=== PATIENT | female | born 1960 | race Caucasian/White ===

== ENCOUNTER 2016-12-12 16:57 | Emergency (ER) | payer OTHER ==
[2016-12-12 17:07] VITALS: BP 152/85; PULSE 76; TEMP 98; BMI 35.9
--- NOTE | 2016-12-12 17:20 | PDOC ---
History of Present Illness - General History Source: Patient Exam Limitations: No Limitations - History of Present Illness Initial Comments: 12/12/16 17:58 The patient is a 56 year old female, with a significant past medical history of HTN and depression, who presents to the emergency department with chest pain, neck pain, abdominal pain and urinary frequency since yesterday. She states that her chest pain is mild, without mild radiation to her left arm, without any modifying factors. She notes that she currently does not have chest pain. She describes her neck pain, as ranging from mild to moderate, with radiation down her throat. She denies any modifying factors. She describes her abdominal pain as a cramping, burning sensation that is mild in nature, without radiation or modifying factors. She states that she has a gastric reflux in the past. The patient denies shortness of breath, headache and dizziness. Denies fever, chills, nausea, vomit, diarrhea and constipation. Denies dysuria, urgency and hematuria. Allergies: None Past surgical history: Tubal ligation Social history: No alcohol, tobacco or drug use reported <Devonte Hurtado - Last Filed: 12/12/16 18:34> <Jewell Pacheco - Last Filed: 12/12/16 22:23> - General Chief Complaint: Chest Pain Stated Complaint: HEAD/NECK PROBLEM Time Seen by Provider: 12/12/16 17:19 Past History <Devonte Hurtado - Last Filed: 12/12/16 18:34> - Past Medical History HTN: Yes Psychiatric Problems: Yes (depression) - Psycho/Social/Smoking Cessation Hx Anxiety: No Suicidal Ideation: No Smoking History: Never smoked Have you smoked in the past 12 months: No Information on smoking cessation initiated: No Hx Alcohol Use: No Drug/Substance Use Hx: No Substance Use Type: None <Jewell Pacheco - Last Filed: 12/12/16 22:23> - Past Medical History Allergies/Adverse Reactions: Allergies Allergy/AdvReac Type Severity Reaction Status Date / Time No Known Allergies Allergy Verified 12/12/16 17:02 Home Medications: Ambulatory Orders Enalapril Maleate [Vasotec -] 20 mg PO DAILY 05/15/14 Hydrochlorothiazide [Hctz -] 25 mg PO DAILY 05/15/14 Paroxetine HCl [Paxil] 30 mg PO DAILY #7 tablet 02/15/16 Famotidine [Pepcid -] 20 mg PO DAILY #7 tablet 12/12/16 Ibuprofen [Motrin -] 600 mg PO TID PRN #21 tablet 12/12/16 Mag Hydrox/Al Hydrox/Simeth [Mylanta Suspension -] 30 ml PO Q6H PRN #1 bottle Review of Systems - Review of Systems Able to Perform ROS?: Yes Comments:: 12/12/16 17:58 GENERAL/CONSTITUTIONAL: No fever or chills. No weakness. HEAD, EYES, EARS, NOSE AND THROAT: No change in vision. No ear pain or discharge. No sore throat. CARDIOVASCULAR: +Chest pain. No shortness of breath RESPIRATORY: No cough, wheezing, or hemoptysis. GASTROINTESTINAL: +Abdominal pain. No nausea, vomiting, diarrhea or constipation. GENITOURINARY: +Frequency. No dysuria MUSCULOSKELETAL: +Neck pain. No joint or muscle swelling or pain. No back pain. SKIN: No rash NEUROLOGIC: No headache, vertigo, loss of consciousness, or change in strength/ sensation. ENDOCRINE: No increased thirst. No abnormal weight change HEMATOLOGIC/LYMPHATIC: No anemia, easy bleeding, or history of blood clots. ALLERGIC/IMMUNOLOGIC: No hives or skin allergy. <Devonte Hurtado - Last Filed: 12/12/16 18:34> *Physical Exam - Vital Signs Last Vital Signs Temp Pulse Resp BP Pulse Ox 98.0 F 76 18 152/85 100 12/12/16 17:04 12/12/16 17:04 12/12/16 17:04 12/12/16 17:04 12/12/16 17:04 - Physical Exam Comments: 12/12/16 17:58 GENERAL: Awake, alert, and fully oriented, in no acute distress HEAD: No signs of trauma, normocephalic, atraumatic EYES: PERRLA, EOMI, sclera anicteric, conjunctiva clear ENT: Auricles normal inspection, hearing grossly normal, nares patent, oropharynx clear without exudates. Moist mucosa NECK: Normal ROM, supple, no lymphadenopathy, JVD, or masses LUNGS: No distress, speaks full sentences, clear to auscultation bilaterally HEART: Regular rate and rhythm, normal S1 and S2, no murmurs, rubs or gallops, peripheral pulses normal and equal bilaterally. ABDOMEN: Soft, nontender, normoactive bowel sounds. No guarding, no rebound. No masses EXTREMITIES: Normal inspection, Normal range of motion, no edema. No clubbing or cyanosis. NEUROLOGICAL: Cranial nerves II through XII grossly intact. Normal speech, normal gait, no focal sensorimotor deficits SKIN: Warm, Dry, normal turgor, no rashes or lesions noted. <Devonte Hurtado - Last Filed: 12/12/16 18:34> - Vital Signs Last Vital Signs Temp Pulse Resp BP Pulse Ox 98.0 F 76 18 152/85 100 12/12/16 17:04 12/12/16 17:04 12/12/16 17:04 12/12/16 17:04 12/12/16 17:04 <Jewell Pacheco - Last Filed: 12/12/16 22:23> Heart Score/ECG Review #1 ECG reviewed & interpreted by me at: 17:59 12/12/16 17:11 Ventricular rate: 71 bpm Normal sinus rhythm Inverted T waves in lead I and lead II <Devonte Hurtado - Last Filed: 12/12/16 18:34> ED Treatment Course - LABORATORY CBC & Chemistry Diagram: 12/12/16 17:37 12/12/16 17:37 - ADDITIONAL ORDERS Additional order review: 12/12/16 17:37 RBC 4.60 MCV 83.6 MCHC 32.9 RDW 14.3 MPV 8.2 Neutrophils % 61.9 Lymphocytes % 28.6 D Monocytes % 6.2 Eosinophils % 2.3 Basophils % 1.0 - RADIOLOGY Radiograph Interpretation: 12/12/16 18:34 Chest X-Ray Reviewed by: Dr. Villa Astudillo Impression: No acute pathology. <Devonte Hurtado - Last Filed: 12/12/16 18:34> - LABORATORY CBC & Chemistry Diagram: 12/12/16 17:37 12/12/16 17:37 <Jewell Pacheco - Last Filed: 12/12/16 22:23> Medical Decision Making - Medical Decision Making 12/12/16 18:05 56 yo female p/w multiple complaints-she had cp yesterday that started in her neck .It has resolved but then she had epigastric discomfort that she described as burning, she doesnothave any back pain -no fever,no chills, no vomiting ,no tingling or numbness in extemities, no shortness of breath,no cough -labs unremarkable, ua negative,neg trop -symptoms resolved after IV toradol pt discharged home 12/12/16 22:20 <Jewell Pacheco - Last Filed: 12/12/16 22:23> *DC/Admit/Observation/Transfer - Attestations Scribe Attestion: 12/12/16 17:58 Documentation prepared by Devonte Hurtado, acting as medical equipment technician for Jewell Pacheco MD. <Devonte Hurtado - Last Filed: 12/12/16 18:34> <Jewell Pacheco - Last Filed: 12/12/16 22:23> Diagnosis at time of Disposition: Epigastric pain, Tension headache Neck strain Qualifiers: Encounter type: initial encounter Qualified Code(s): S16.1XXA - Strain of muscle, fascia and tendon at neck level, initial encounter Anxiety disorder Qualifiers: Anxiety disorder type: unspecified anxiety disorder Qualified Code(s): F41.9 - Anxiety disorder, unspecified - Discharge Dispostion Disposition: HOME Condition at time of disposition: Stable - Prescriptions Prescriptions: Mag Hydrox/Al Hydrox/Simeth [Mylanta Suspension -] 30 ml PO Q6H PRN #1 bottle PRN Reason: Dyspnea Ibuprofen [Motrin -] 600 mg PO TID PRN #21 tablet PRN Reason: Pain Famotidine [Pepcid -] 20 mg PO DAILY #7 tablet - Referrals Referrals: Jerri Miramontes [Primary Care Provider] - - Patient Instructions Printed Discharge Instructions: DI for Atypical Chest Pain, DI for Neck Pain, DI for Hormonal and Tension Headaches Additional Instructions: please worm picker your medications at your pharmacy please see your regular physician -if you have recurrent headaches you may need to see a specialist
[2016-12-12] MEDS ORDERED: ASPIRIN 81 MG CHEWABLE TABLETS PO ONE (17:35)
[2016-12-12] MEDS ORDERED: MAG HYDROX/AL HYDROX/SIMETH 30 ML UNIT-DOSE CUP PO ONE (17:36)
[2016-12-12 17:54] LABS: EOSINOPHIL 2.3 % (0-4.5); MCH 27.5 pg (25.7-33.7); MCHC 32.9 g/dl (32.0-36.0); MEAN CELL VOLUME 83.6 fl (80-96); MEAN PLT VOLUME 8.2 fl (7.5-11.1); NEUTROPHILS 61.9 % (42.8-82.8); PLATELET COUNT 314 K/MM3 (134-434); RDW 14.3 % (11.6-15.6); WHITE BLOOD COUNT 6.8 K/mm3 (4.0-10.0)
[2016-12-12 17:55] LABS: URINE APPEARANCE CLEAR; URINE BILIRUBIN NEGATIVE (NEGATIVE); URINE BLOOD NEGATIVE (NEGATIVE); URINE COLOR COLORLESS; URINE GLUCOSE (UA) NEGATIVE (NEGATIVE); URINE KETONE NEGATIVE (NEGATIVE); URINE LEUK ESTERASE NEGATIVE (NEGATIVE); URINE NITRITE NEGATIVE (NEGATIVE); URINE PROTEIN NEGATIVE (NEGATIVE); URINE UROBILINOGEN NEGATIVE E.U./dl (0.2-1.0)
[2016-12-12 18:07] LABS: INR 1.04 (0.82-1.09); PROTHROMBIN TIME (PATIENT) 11.5 SEC (9.98-11.88)
[2016-12-12 18:18] LABS: ALBUMIN 3.9 g/dl (3.4-5.0); ANION GAP 10 (8-16); BILIRUBIN,TOTAL 0.3 mg/dL (0.2-1.0); CALCIUM 9.1 mg/dL (8.5-10.1); CO2 28 mmol/L (21-32); CREATININE 0.8 mg/dL (0.55-1.02); GLUCOSE,RANDOM 105 mg/dL (74-106); MAGNESIUM 1.9 mg/dL (1.8-2.4); SGOT/AST 16 U/L (15-37); SGPT/ALT 23 U/L (12-78); TOT PROT 7.2 g/dl (6.4-8.2)
[2016-12-12 18:21] LABS: ALK PHOS 93 U/L (45-117); TROPONIN I < 0.02 ng/ml (0.00-0.05)
[2016-12-12] MEDS ORDERED: MAG HYDROX/AL HYDROX/SIMETH 30 ML UNIT-DOSE CUP ONE (18:41)
[2016-12-12] MEDS ORDERED: ASPIRIN 81 MG CHEWABLE TABLETS ONE (18:41)
[2016-12-12] MEDS ORDERED: DEXAMETHASONE SOD PHOSPHATE 10 MG/1 ML VIAL IVPUSH ONE (18:44)
[2016-12-12] MEDS ORDERED: KETOROLAC TROMETHAMINE 30 MG/1 ML VIAL IVPUSH ONE (18:45)
[2016-12-12] MEDS ORDERED: KETOROLAC TROMETHAMINE 30 MG/1 ML VIAL ONE (18:50)
[2016-12-12] MEDS ORDERED: DEXAMETHASONE SOD PHOSPHATE 10 MG/1 ML VIAL ONE (18:50)
[2016-12-12] MEDS ORDERED: METOCLOPRAMIDE HCL INJECTION 10 MG/2 ML VIAL IVPB ONE (20:15)
[2016-12-12] MEDS ORDERED: METOCLOPRAMIDE HCL INJECTION 10 MG/2 ML VIAL ONE (20:20)
== END 2016-12-12 21:20 | disposition home or self-care (01) ==
LOC: JER 16:57
PROC: 3E033GC Introduction of Other Therapeutic Substance into Peripheral Vein, Percutaneous Approach (ICD-10-PCS; principal; 2016-12-12)
PROC: 3E0333Z Introduction of Anti-inflammatory into Peripheral Vein, Percutaneous Approach (ICD-10-PCS; 2016-12-12)
DX: G44.209 Tension-type headache, unspecified, not intractable (principal)
CPT/HCPCS: 36415; 71020-TC; 80053; 81003; 82550; 83690; 83735; 84484; 85025; 85610; 85651; 96374; 96375; 99285-25

== ENCOUNTER 2018-05-14 09:12 | Inpatient (IN) | payer OTHER ==
[2018-05-14] MEDS ORDERED: VANCOMYCIN 1,000 MG in DEXTROSE 5%-WATER - 250 ML IVPB ONE (09:43)
[2018-05-14] MEDS ORDERED: KETOROLAC TROMETHAMINE 30 MG/1 ML VIAL IVPB ONE (09:43)
--- NOTE | 2018-05-14 09:50 | PDOC ---
History of Present Illness - General History Source: Patient Exam Limitations: No Limitations - History of Present Illness Initial Comments: 05/14/18 09:47 58 yr female with 2 days facial pain, runny nose, sore throat, headache. Pt states worse today with redness to nose, swelling to under both eyes. Pt denies fever or chills. Pt works as a home health aide. denies foreign travel, no sick contacts at home. <Shena Cabral - Last Filed: 05/14/18 13:56> <Priscila Us - Last Filed: 05/14/18 14:26> - General Chief Complaint: Cold Symptoms Stated Complaint: FACE PAIN Time Seen by Provider: 05/14/18 09:28 Past History - Past Medical History COPD: No HTN: Yes Psychiatric Problems: Yes (depression) - Suicide/Smoking/Psychosocial Hx Smoking History: Never smoked Have you smoked in the past 12 months: No Information on smoking cessation initiated: No Hx Alcohol Use: No Drug/Substance Use Hx: No Substance Use Type: None <Shena Cabral - Last Filed: 05/14/18 13:56> <Priscila Us - Last Filed: 05/14/18 14:26> - Past Medical History Allergies/Adverse Reactions: Allergies Allergy/AdvReac Type Severity Reaction Status Date / Time No Known Allergies Allergy Verified 05/14/18 09:20 Home Medications: Ambulatory Orders Paroxetine HCl [Paxil] 30 mg PO DAILY #7 tablet 02/15/16 Lisinopril/Hydrochlorothiazide [Lisinopril-Hctz 20-25 mg Tab] 1 each PO DAILY Review of Systems - Review of Systems Able to Perform ROS?: Yes Is the patient limited Uzbek proficient: No Constitutional: No: Symptoms Reported HEENTM: Yes: Symptoms Reported <Shena Cabral - Last Filed: 05/14/18 13:56> *Physical Exam - Vital Signs Last Vital Signs Temp Pulse Resp BP Pulse Ox 98.7 F 70 16 139/72 100 05/14/18 09:20 05/14/18 09:20 05/14/18 09:20 05/14/18 09:20 05/14/18 09:20 - Physical Exam General Appearance: Yes: Nourished, Appropriately Dressed HEENT: positive: EOMI, TALAT, TMs Normal, Pharyngeal Erythema, Tonsillar Exudate , Tonsillar Erythema (left ), Nasal Congestion, Rhinorrhea (clear), Sinus Tenderness, Other (tip of nose reddened, swelling inside left nare with mucousy drainage , TTP over maxilary sinuses) Neck: positive: Supple, Lymphadenopathy (L). negative: Tender, Decreased range of motion, Rigidity, Tender lateral, Tender midline Respiratory/Chest: positive: Lungs Clear, Normal Breath Sounds Cardiovascular: positive: Regular Rhythm, Regular Rate <Shena Cabral - Last Filed: 05/14/18 13:56> - Vital Signs Last Vital Signs Temp Pulse Resp BP Pulse Ox 98.7 F 70 16 139/72 100 05/14/18 09:20 05/14/18 09:20 05/14/18 09:20 05/14/18 09:20 05/14/18 09:20 <Priscila Us - Last Filed: 05/14/18 14:26> ED Treatment Course - LABORATORY CBC & Chemistry Diagram: 05/14/18 10:15 05/14/18 10:15 <Shena Cabral - Last Filed: 05/14/18 13:56> - LABORATORY CBC & Chemistry Diagram: 05/14/18 10:15 05/14/18 10:15 - ADDITIONAL ORDERS Additional order review: Laboratory Results 05/14/18 10:15 Sodium 139 Potassium 4.4 Chloride 102 Carbon Dioxide 30 Anion Gap 7 L BUN 17 Creatinine 0.8 Creat Clearance w eGFR > 60 Random Glucose 103 Calcium 9.3 Total Bilirubin 0.4 AST 20 ALT 27 Alkaline Phosphatase 99 Total Protein 7.4 Albumin 3.6 05/14/18 09:38 Group A Strep Rapid Antigen - Final Throat 05/14/18 10:15 RBC 4.58 MCV 84.9 MCHC 32.6 RDW 14.4 MPV 8.5 Neutrophils % 76.2 D Lymphocytes % 15.8 D Monocytes % 6.1 Eosinophils % 1.7 Basophils % 0.2 - Medications Given in the ED: ED Medications Discontinued Medications Generic Name Dose Route Start Last Admin Trade Name Freq PRN Reason Stop Dose Admin Vancomycin HCl 1,000 mg/ 250 mls @ 166.667 mls/hr 05/14/18 09:43 05/14/18 10: 28 Dextrose IVPB 05/14/18 11:12 166.667 mls/hr ONCE ONE Administration Protocol Ketorolac Tromethamine 30 mg 05/14/18 09:43 05/14/18 10:24 Toradol Injection - IVPB 05/14/18 09:44 30 mg ONCE ONE Administration <Priscila Us - Last Filed: 05/14/18 14:26> Medical Decision Making - Medical Decision Making 05/14/18 09:49 cc: sore throat, facial pain, nasal pain runny nose throat culture done, MRSA swab left nare done will give toradol, vanco , check labs possible CT scan 05/14/18 12:03 pain well controlled with toradol. 05/14/18 13:23 pt feeling better after toradol and IVAB awaiting ct result stable vitals at this time 05/14/18 13:56 ct resulted pt with abscess possible phlegmon will transfer to main ED for further eval, probable admission <Shena Cabral - Last Filed: 05/14/18 13:56> *DC/Admit/Observation/Transfer <Shena Cabral - Last Filed: 05/14/18 13:56> - Discharge Dispostion Decision to Admit order: Yes <Priscila Us - Last Filed: 05/14/18 14:26> Diagnosis at time of Disposition: Nasal abscess, Facial cellulitis - Discharge Dispostion Condition at time of disposition: Stable
[2018-05-14] MEDS ORDERED: KETOROLAC TROMETHAMINE 30 MG/1 ML VIAL ONE (10:00)
[2018-05-14] MEDS ORDERED: VANCOMYCIN 1 GRAM (PRE-DOCKED) 1,000 MG/250 ML BAG IVPB ONE (10:05)
[2018-05-14 10:34] LABS: BASO % 0.2 % (0-2.0); EOS % 1.7 % (0-4.5); HEMATOCRIT 38.9 % (32.4-45.2); HEMOGLOBIN 12.7 GM/dL (10.7-15.3); LYMPH % 15.8 % (8-40); MCH 27.7 pg (25.7-33.7); MCHC 32.6 g/dl (32.0-36.0); MEAN CELL VOLUME 84.9 fl (80-96); MEAN PLT VOLUME 8.5 fl (7.5-11.1); MONO % 6.1 % (3.8-10.2); NEUT % 76.2 % (42.8-82.8); PLATELET COUNT 328 K/MM3 (134-434); RBC 4.58 M/mm3 (3.60-5.2); RDW 14.4 % (11.6-15.6); WHITE BLOOD COUNT 7.8 K/mm3 (4.0-10.0)
[2018-05-14 10:53] LABS: ALBUMIN 3.6 g/dl (3.4-5.0); ALK PHOS 99 U/L (45-117); ANION GAP 7 (8-16); BILIRUBIN,TOTAL 0.4 mg/dL (0.2-1.0); BLOOD UREA NITROGEN 17 mg/dL (7-18); CALCIUM 9.3 mg/dL (8.5-10.1); CHLORIDE 102 mmol/L (98-107); CO2 30 mmol/L (21-32); CREATININE 0.8 mg/dL (0.55-1.02); GLUCOSE,RANDOM 103 mg/dL (74-106); POTASSIUM 4.4 mmol/L (3.5-5.1); SGOT/AST 20 U/L (15-37); SGPT/ALT 27 U/L (12-78); SODIUM 139 mmol/L (136-145); TOT PROT 7.4 g/dl (6.4-8.2)
--- NOTE | 2018-05-14 14:16 | PDOC ---
ED Treatment Course - LABORATORY CBC & Chemistry Diagram: 05/14/18 10:15 05/14/18 10:15 - ADDITIONAL ORDERS Additional order review: Laboratory Results 05/14/18 10:15 Sodium 139 Potassium 4.4 Chloride 102 Carbon Dioxide 30 Anion Gap 7 L BUN 17 Creatinine 0.8 Creat Clearance w eGFR > 60 Random Glucose 103 Calcium 9.3 Total Bilirubin 0.4 AST 20 ALT 27 Alkaline Phosphatase 99 Total Protein 7.4 Albumin 3.6 05/14/18 09:38 Group A Strep Rapid Antigen - Final Throat 05/14/18 10:15 RBC 4.58 MCV 84.9 MCHC 32.6 RDW 14.4 MPV 8.5 Neutrophils % 76.2 D Lymphocytes % 15.8 D Monocytes % 6.1 Eosinophils % 1.7 Basophils % 0.2 - Medications Given in the ED: ED Medications Discontinued Medications Generic Name Dose Route Start Last Admin Trade Name Freq PRN Reason Stop Dose Admin Vancomycin HCl 1,000 mg/ 250 mls @ 166.667 mls/hr 05/14/18 09:43 05/14/18 10: 28 Dextrose IVPB 05/14/18 11:12 166.667 mls/hr ONCE ONE Administration Protocol Ketorolac Tromethamine 30 mg 05/14/18 09:43 05/14/18 10:24 Toradol Injection - IVPB 05/14/18 09:44 30 mg ONCE ONE Administration Progress Note - Progress Note Progress Note: I have received report from SAGAR Cabral regarding this patient. Pt's initial chief complaint: cold symptoms Pt's work up completed prior to sign out: labs, CT scan facial bones Pt treatment given from prior staff: IV toradol and vanc Pt plan to be completed: admission, ENT and ID consult Dispo: Admit Medical Decision Making - Medical Decision Making A/P: 58 y/o afebrile female with PMH HTN c/o 2 days facial pain, runny nose, sore throat and headache. Patient was initially seen in [facility], found to have a nasal septal abscess with swelling under both eyes. CT scan shows left facial cellulitis with midline abscess of anterior soft tissues of the nose with possible left nasal nostril phlegmon/abscess formation. The patient will be started on abx, admitted to the hospital and seen by ENT. Spoke with Dr. Tsang, who accepts admission. She would like Dr. Alamo consulted. IV clinda will be started. Spoke to Dr. Infante's bacteriologist medical, who said he will consult with the patient this afternoon. *DC/Admit/Observation/Transfer Diagnosis at time of Disposition: Nasal abscess, Facial cellulitis - Discharge Dispostion Condition at time of disposition: Stable Decision to Admit order: Yes - Referrals - Patient Instructions - Post Discharge Activity
[2018-05-14] MEDS ORDERED: CLINDAMYCIN 600MG PREMIX IVPB 600 MG/50 ML BAG IVPB ONE ×2 (14:23→15:11)
[2018-05-14] MEDS ORDERED: CLINDAMYCIN 900 MG PREMIX IVPB 900 MG/50 ML BAG IVPB ONE (15:08)
--- NOTE | 2018-05-14 16:59 | HP ---
Admitting History and Physical - Primary Care Physician PCP: Harjinder Tsang - Admission History of Present Illness: 58 y/o afebrile female with PMH HTN c/o 2 days facial pain, runny nose, sore throat and headache. Patient was initially seen in [facility], found to have a nasal septal abscess with swelling under both eyes. CT scan shows left facial cellulitis with midline abscess of anterior soft tissues of the nose with possible left nasal nostril phlegmon/abscess formation. The patient will be started on abx, admitted to the hospital and seen by ENT. - Past Medical History Cardiovascular: Yes: HTN - Smoking History Smoking history: Never smoked Have you smoked in the past 12 months: No - Alcohol/Substance Use Hx Alcohol Use: No Home Medications - Allergies Allergies/Adverse Reactions: Allergies Allergy/AdvReac Type Severity Reaction Status Date / Time No Known Allergies Allergy Verified 05/14/18 09:20 - Home Medications Home Medications: Ambulatory Orders Paroxetine HCl [Paxil] 30 mg PO DAILY #7 tablet 02/15/16 Lisinopril/Hydrochlorothiazide [Lisinopril-Hctz 20-25 mg Tab] 1 each PO DAILY Physical Examination Vital Signs: Vital Signs Temperature 97.5 F L 05/14/18 14:54 Pulse Rate 65 05/14/18 14:54 Respiratory Rate 20 05/14/18 14:54 Blood Pressure 150/96 05/14/18 14:54 O2 Sat by Pulse Oximetry (%) 99 05/14/18 14:54 Constitutional: Yes: No Distress Eyes: Yes: Conjunctiva Clear HENT: Yes: Atraumatic, Other (face swollen, more over Nose) Cardiovascular: Yes: Regular Rate and Rhythm Respiratory: Yes: CTA Bilaterally Gastrointestinal: Yes: Normal Bowel Sounds Extremities: Yes: WNL Neurological: Yes: Alert, Oriented Labs: CBC, BMP 05/14/18 10:15 05/14/18 10:15 Problem List - Problems (1) Facial cellulitis Assessment/Plan: iv abx cxs sent id and ent consult Code(s): L03.211 - CELLULITIS OF FACE (2) Nasal abscess Assessment/Plan: need ent input Code(s): J34.0 - ABSCESS, FURUNCLE AND CARBUNCLE OF NOSE (3) Anxiety disorder Code(s): F41.9 - ANXIETY DISORDER, UNSPECIFIED Qualifiers: Anxiety disorder type: unspecified anxiety disorder Qualified Code(s): F41.9 - Anxiety disorder, unspecified (4) HTN (hypertension) Assessment/Plan: on meds stable Code(s): I10 - ESSENTIAL (PRIMARY) HYPERTENSION Assessment/Plan Laboratory Tests 05/14/18 05/14/18 10:15 10:15 WBC 7.8 RBC 4.58 Hgb 12.7 Hct 38.9 MCV 84.9 MCH 27.7 MCHC 32.6 RDW 14.4 Plt Count 328 MPV 8.5 Absolute Neuts (auto) 5.9 Neutrophils % 76.2 D Lymphocytes % 15.8 D Monocytes % 6.1 Eosinophils % 1.7 Basophils % 0.2 Nucleated RBC % 0 Sodium 139 Potassium 4.4 Chloride 102 Carbon Dioxide 30 Anion Gap 7 L BUN 17 Creatinine 0.8 Creat Clearance w eGFR > 60 Random Glucose 103 Calcium 9.3 Total Bilirubin 0.4 AST 20 ALT 27 Alkaline Phosphatase 99 Total Protein 7.4 Albumin 3.6 Active Medications Generic Name Dose Route Start Last Admin Trade Name Terryq PRN Reason Stop Dose Admin Hydrochlorothiazide 25 mg 05/15/18 10:00 05/15/18 10:03 Hctz - PO 25 mg DAILY KALYN Administration Lisinopril 20 mg 05/15/18 10:00 05/15/18 10:04 Prinivil PO 20 mg DAILY KALYN Administration Mupirocin 1 applic 05/14/18 14:00 Bactroban 2% Ointment - NS 05/20/18 22:01 BID KALYN Paroxetine HCl 30 mg 05/15/18 10:00 05/15/18 10:03 Paxil - PO 30 mg DAILY KALYN Administration
[2018-05-14] MEDS ORDERED: LIDO 2%/EPI 1:200000 PRESRVFRE (20 ML SDVIAL) EP ONE (18:14)
[2018-05-14] MEDS ORDERED: LIDOCAINE 1%/EPI 1:100000 (20 ML MULTI DOSE VIAL) ONE (18:19)
[2018-05-14] MEDS ORDERED: morphine SULFATE 4 MG/ML VIAL IVPUSH ONE (18:30)
[2018-05-14] MEDS ORDERED: morphine SULFATE 4 MG/ML VIAL ONE (18:32)
--- NOTE | 2018-05-14 18:57 | CON.ENT ---
Consult Consult Specialty:: ENT Reason for Consultation:: nasal abscess - History of Present Illness Chief Complaint: nasal abscess History of Present Illness: 58F developed left nasal pain and swelling three days ago that has progressed. Came to ER. CT Face showed ~1cm left nasal abscess with surrounding inflammatory changes. ENT consulted. Never happened before. Denies plucking nose hairs. No diabetes. - History Source History Provided By: Patient Limitations to Obtaining History: Other (Divehi speaking) - Past Medical History Cardio/Vascular: Yes: HTN Psych: Yes: Depression - Alcohol/Substance Use Hx Alcohol Use: No - Smoking History Smoking history: Former smoker Have you smoked in the past 12 months: No Home Medications - Allergies Allergies/Adverse Reactions: Allergies Allergy/AdvReac Type Severity Reaction Status Date / Time No Known Allergies Allergy Verified 05/14/18 09:20 - Home Medications Home Medications: Ambulatory Orders Paroxetine HCl [Paxil] 30 mg PO DAILY #7 tablet 02/15/16 Lisinopril/Hydrochlorothiazide [Lisinopril-Hctz 20-25 mg Tab] 1 each PO DAILY Review of Systems - Review of Systems Eyes: denies: Blind Spots, Blurred Vision, Double Vision, Eye Pain, Recent Change in Vision Neurological: reports: Headache Physical Exam-ENT Vital Signs: Vital Signs Temperature 97.5 F L 05/14/18 14:54 Pulse Rate 70 05/14/18 18:42 Respiratory Rate 20 05/14/18 18:42 Blood Pressure 142/84 05/14/18 18:42 O2 Sat by Pulse Oximetry (%) 97 05/14/18 18:42 Constitutional: Yes: Well Nourished Head: Yes: WNL Face: Yes: Other (Nasal cellulitis centered left nostril/tip.) Eyes: Yes: WNL Nose: Yes: Other (L>R cellulitic changes with edema and erythema. Left tip very ttp. Intranasal edema anteriorly (not septal).) Oral/Pharynx: Yes: WNL Outer Ear: Yes: WNL Ear Canal: Yes: Other (Cerumen AD; grossly clear ) Tympanic Membrane: Yes: Other (Blocked AD; grossly wnl ) Neck: Yes: WNL Neurological: Yes: Other (CN3-7,11,12 grossly intact) Imaging - Results Cat Scan: Image Reviewed (left nasal tip rim enhancing collection) Other: Other (Procedure: Left nasal I&D Explained r/b/l/a in bhutanese incl but not limited to bleeding, pain, persistent infection, failure to obtain purulence , nasal deformity, scarring, numbness, need for further medical and/or surgical treatment. All questions answered and she consents. Understands no guaranteed outcomes. Procedure: After topical lidocaine 1% applied to nasal vesibule with cotton ball, injected 2 cc lido 1%, Epi 1:[id number] (2cc total) around left nasal tip. 18g needle inserted into most fluctuant area and aspirated ~1cc purulent material which was cultured. A small stab incision was made with 11 blade through mucosa, avoiding damage to underlying nasal cartilage. A sterile qtip was used to probe area followed by bimanual exam to express residual sebaceous/ purulent material. Tolerated well. Minimal oozing, stopped promptly spontaneously.) Problem List - Problems (1) Nasal abscess Assessment/Plan: Left nasal abscess - I&D done today after reviewing r/b/l/a with patient in bhutanese at bedside. Done, tolerated well with roughly 1cc purulence expressed (similar to size measured on CT). - IV abx to cover gram positive and possible MRSA. Cx taken of drainage. Got vanco, clinda. - ID to consult. - Need mupirocin topically BID for two weeks - Anticipate resolution with topical and IV abx. - No report of intracranial vasc/inflam abnmlties which went through cavernous sinus and orbits. Please call if questions or failure to respond. I would otherwise ask her to see me in my office in two weeks. Code(s): J34.0 - ABSCESS, FURUNCLE AND CARBUNCLE OF NOSE
[2018-05-15 02:05] VITALS: BMI 35.4
[2018-05-15] MEDS ORDERED: PATIENT'S OWN MEDICATION (NON-FORMULARY) (Lisinopril/Hydrochlorothiazide [Lisinopril-Hctz PO SCH (10:00)
[2018-05-15] MEDS: HYDROCHLOROTHIAZIDE 25 MG TABLET (FP) PO SCH (10:03)
[2018-05-15] MEDS: PARoxetine HCL 10 MG TABLET (FP) PO SCH (10:03)
[2018-05-15] MEDS: LISINOPRIL 20 MG TABLET (FP) PO SCH (10:04)
--- NOTE | 2018-05-15 14:07 | PN ---
Progress Note, Physician - Current Medication List Current Medications: Active Medications Hydrochlorothiazide (Hctz -) 25 mg PO DAILY [facility] Last Admin: 05/15/18 10:03 Dose: 25 mg Lisinopril (Prinivil) 20 mg PO DAILY [facility] Last Admin: 05/15/18 10:04 Dose: 20 mg Mupirocin (Bactroban 2% Ointment -) 1 applic NS BID [facility] Stop: 05/20/18 22:01 Paroxetine HCl (Paxil -) 30 mg PO DAILY [facility] Last Admin: 05/15/18 10:03 Dose: 30 mg - Objective Vital Signs: Vital Signs Temperature 98.1 F 05/15/18 10:02 Pulse Rate 66 05/15/18 10:02 Respiratory Rate 20 05/15/18 10:02 Blood Pressure 111/65 05/15/18 10:02 O2 Sat by Pulse Oximetry (%) 97 05/14/18 18:42 Constitutional: Yes: No Distress HENT: Yes: Atraumatic, Other (face swollen but improving) Neck: Yes: Supple Cardiovascular: Yes: Regular Rate and Rhythm Respiratory: Yes: CTA Bilaterally Gastrointestinal: Yes: Normal Bowel Sounds Extremities: Yes: WNL Neurological: Yes: Alert, Oriented Labs: CBC, BMP 05/14/18 10:15 05/14/18 10:15 Problem List - Problems (1) Facial cellulitis Assessment/Plan: iv abx cxs sent id and ent consult Code(s): L03.211 - CELLULITIS OF FACE (2) Nasal abscess Assessment/Plan: need ent input Code(s): J34.0 - ABSCESS, FURUNCLE AND CARBUNCLE OF NOSE (3) Anxiety disorder Code(s): F41.9 - ANXIETY DISORDER, UNSPECIFIED Qualifiers: Anxiety disorder type: unspecified anxiety disorder Qualified Code(s): F41.9 - Anxiety disorder, unspecified (4) HTN (hypertension) Assessment/Plan: on meds stable Code(s): I10 - ESSENTIAL (PRIMARY) HYPERTENSION
[2018-05-15] MEDS: MUPIROCIN 2% TOPICAL OINTMENT 22 GM TUBE NS SCH ×2 (14:44→22:30)
--- NOTE | 2018-05-15 14:54 | CON.ID ---
Consult Consult Specialty:: infectious diseases Referred by:: Reason for Consultation:: facial cellulitis - History of Present Illness Chief Complaint: swelling of the nose and face History of Present Illness: 58 y/o afebrile female with PMH HTN c/o 2 days facial pain, runny nose, sore throat and headache. Patient was initially seen in [facility], found to have a nasal septal abscess with swelling under both eyes. CT scan shows left facial cellulitis with midline abscess of anterior soft tissues of the nose with possible left nasal nostril phlegmon/abscess formation. patient mentions that she was probably bit by something patient was seen by ENT and the abscess was drained The cx are pending denies smoking/drugs - History Source History Provided By: Patient, Family Member Limitations to Obtaining History: Language Barrier - Past Medical History Cardio/Vascular: Yes: HTN Psych: Yes: Depression - Alcohol/Substance Use Hx Alcohol Use: No - Smoking History Smoking history: Never smoked Have you smoked in the past 12 months: No Home Medications - Allergies Allergies/Adverse Reactions: Allergies Allergy/AdvReac Type Severity Reaction Status Date / Time No Known Allergies Allergy Verified 05/14/18 09:20 - Home Medications Home Medications: Ambulatory Orders Paroxetine HCl [Paxil] 30 mg PO DAILY #7 tablet 02/15/16 Lisinopril/Hydrochlorothiazide [Lisinopril-Hctz 20-25 mg Tab] 1 each PO DAILY Review of Systems - Review of Systems Constitutional: reports: No Symptoms Eyes: reports: No Symptoms HENT: reports: Other (nasla swelling and facial cellulitis) Neck: reports: No Symptoms Cardiovascular: reports: No Symptoms Respiratory: reports: No Symptoms Gastrointestinal: reports: No Symptoms Genitourinary: reports: No Symptoms Musculoskeletal: reports: No Symptoms Integumentary: reports: Erythema (of the face) Neurological: reports: No Symptoms Endocrine: reports: No Symptoms Hematology/Lymphatic: reports: No Symptoms Psychiatric: reports: No Symptoms Physical Exam Vital Signs: Vital Signs Temperature 97.9 F 05/15/18 14:37 Pulse Rate 70 05/15/18 14:37 Respiratory Rate 20 05/15/18 14:37 Blood Pressure 119/73 05/15/18 14:37 O2 Sat by Pulse Oximetry (%) 97 05/14/18 18:42 Constitutional: Yes: Well Nourished, Calm, Mild Distress Eyes: Yes: Conjunctiva Clear HENT: Yes: Other (nasal packing,mild facial cellulitis) Neck: Yes: Supple, Trachea Midline Cardiovascular: Yes: Regular Rate and Rhythm Respiratory: Yes: Regular, CTA Bilaterally Gastrointestinal: Yes: Normal Bowel Sounds, Soft Musculoskeletal: Yes: WNL Extremities: Yes: WNL Neurological: Yes: Alert, Oriented Psychiatric: Yes: Alert, Oriented Labs: CBC, BMP 05/14/18 10:15 05/14/18 10:15 Assessment/Plan Problem List - Problems (1) Facial cellulitis Code(s): L03.211 - CELLULITIS OF FACE (2) Nasal abscess Code(s): J34.0 - ABSCESS, FURUNCLE AND CARBUNCLE OF NOSE (3) Anxiety disorder Code(s): F41.9 - ANXIETY DISORDER, UNSPECIFIED Qualifiers: Anxiety disorder type: unspecified anxiety disorder Qualified Code(s): F41.9 - Anxiety disorder, unspecified (4) HTN (hypertension) Code(s): I10 - ESSENTIAL (PRIMARY) HYPERTENSION plan continue clinda will add unasyn await for cx reports rest as per the team
[2018-05-15] MEDS: CLINDAMYCIN HCL 150 MG CAPSULE (FP) PO SCH (17:25)
[2018-05-15] MEDS: AMPICILLIN NA/SULBACTAM NA 3 GM in SODIUM CHLORIDE 100 ML IVPB SCH ×2 (17:25→17:50)
[2018-05-15] MEDS ORDERED: PT OWN MED DRAWER 7, Y5N ONE (19:53)
[2018-05-16] MEDS: CLINDAMYCIN HCL 150 MG CAPSULE (FP) PO SCH ×4 (00:15→17:52)
[2018-05-16] MEDS: AMPICILLIN NA/SULBACTAM NA 3 GM in SODIUM CHLORIDE 100 ML IVPB SCH ×2 (01:15→09:54)
[2018-05-16] MEDS: MUPIROCIN 2% TOPICAL OINTMENT 22 GM TUBE NS SCH ×3 (08:24→09:27)
[2018-05-16 08:27] LABS: BASO % 0.5 % (0-2.0); EOS % 3.2 % (0-4.5); HEMOGLOBIN 12.3 GM/dL (10.7-15.3); LYMPH % 25.6 % (8-40); MCH 28.5 pg (25.7-33.7); MCHC 33.4 g/dl (32.0-36.0); MEAN CELL VOLUME 85.3 fl (80-96); MEAN PLT VOLUME 8.3 fl (7.5-11.1); NEUT % 62.7 % (42.8-82.8); PLATELET COUNT 311 K/MM3 (134-434); RBC 4.34 M/mm3 (3.60-5.2); WHITE BLOOD COUNT 5.2 K/mm3 (4.0-10.0)
[2018-05-16 08:51] LABS: ALBUMIN 3.2 g/dl (3.4-5.0); ANION GAP 8 (8-16); BLOOD UREA NITROGEN 12 mg/dL (7-18); CALCIUM 8.6 mg/dL (8.5-10.1); CHLORIDE 105 mmol/L (98-107); CO2 28 mmol/L (21-32); GLUCOSE,RANDOM 104 mg/dL (74-106); POTASSIUM 4.3 mmol/L (3.5-5.1); SODIUM 141 mmol/L (136-145)
[2018-05-16] MEDS ORDERED: PT OWN MED DRAWER 7, Y5N ONE (08:51)
[2018-05-16 08:55] LABS: ALK PHOS 88 U/L (45-117); BILIRUBIN,TOTAL 0.5 mg/dL (0.2-1.0); CREATININE 0.7 mg/dL (0.55-1.02); SGOT/AST 17 U/L (15-37); SGPT/ALT 23 U/L (12-78); TOT PROT 6.8 g/dl (6.4-8.2)
[2018-05-16] MEDS: PARoxetine HCL 10 MG TABLET (FP) PO SCH (09:00)
[2018-05-16] MEDS: HYDROCHLOROTHIAZIDE 25 MG TABLET (FP) PO SCH (09:01)
[2018-05-16] MEDS: LISINOPRIL 20 MG TABLET (FP) PO SCH (09:01)
--- NOTE | 2018-05-16 10:25 | PN ---
Progress Note, Physician History of Present Illness: stable mild pain swelling improving - Current Medication List Current Medications: Active Medications Clindamycin HCl (Cleocin -) 300 mg PO Q6HPO [facility] Last Admin: 05/16/18 06:35 Dose: 300 mg Hydrochlorothiazide (Hctz -) 25 mg PO DAILY [facility] Last Admin: 05/16/18 09:01 Dose: 25 mg Ampicillin Sodium/Sulbactam (Sodium 3 gm/ Sodium Chloride) 100 mls @ 200 mls/ hr IVPB Q8H-IV [facility] Last Admin: 05/16/18 09:54 Dose: 200 mls/hr Lisinopril (Prinivil) 20 mg PO DAILY [facility] Last Admin: 05/16/18 09:01 Dose: 20 mg Mupirocin (Bactroban 2% Ointment -) 1 applic NS BID [facility] Stop: 05/20/18 22:01 Last Admin: 05/16/18 09:27 Dose: 1 applic Paroxetine HCl (Paxil -) 30 mg PO DAILY [facility] Last Admin: 05/16/18 09:00 Dose: 30 mg - Objective Vital Signs: Vital Signs Temperature 97.7 F 05/16/18 06:39 Pulse Rate 65 05/16/18 08:54 Respiratory Rate 20 05/16/18 08:54 Blood Pressure 111/64 05/16/18 08:54 O2 Sat by Pulse Oximetry (%) 98 05/15/18 21:00 Constitutional: Yes: No Distress, Calm HENT: Yes: Other (facial cellulittis improving) Cardiovascular: Yes: Regular Rate and Rhythm Respiratory: Yes: Regular, CTA Bilaterally Gastrointestinal: Yes: Normal Bowel Sounds, Soft Musculoskeletal: Yes: WNL Extremities: Yes: WNL Neurological: Yes: Alert, Oriented Psychiatric: Yes: Alert, Oriented Labs: CBC, BMP 05/16/18 06:50 05/16/18 06:50 Assessment/Plan Problem List - Problems (1) Facial cellulitis Code(s): L03.211 - CELLULITIS OF FACE (2) Nasal abscess Code(s): J34.0 - ABSCESS, FURUNCLE AND CARBUNCLE OF NOSE (3) Anxiety disorder Code(s): F41.9 - ANXIETY DISORDER, UNSPECIFIED Qualifiers: Anxiety disorder type: unspecified anxiety disorder Qualified Code(s): F41.9 - Anxiety disorder, unspecified (4) HTN (hypertension) Code(s): I10 - ESSENTIAL (PRIMARY) HYPERTENSION plan continue clinda cx report noted await for sensitivities ent following will stop unasyn rest as per the team
[2018-05-16 14:53] VITALS: BP 90/60; PULSE 66; TEMP 98
--- NOTE | 2018-05-16 18:10 | DS ---
Physical Examination Vital Signs: Vital Signs Temperature 98 F 05/16/18 14:52 Pulse Rate 66 05/16/18 14:52 Respiratory Rate 18 05/16/18 14:52 Blood Pressure 90/60 05/16/18 14:52 O2 Sat by Pulse Oximetry (%) 98 05/16/18 09:00 Labs: CBC, BMP 05/16/18 06:50 05/16/18 06:50 Discharge Summary Reason For Visit: CELLULITIS OF FACE, ABSCESS OF NOSE Current Active Problems Facial cellulitis (Acute) HTN (hypertension) (Acute) Nasal abscess (Acute) Condition: Stable - Instructions - Home Medications Comprehensive Discharge Medication List: Ambulatory Orders Paroxetine HCl [Paxil] 30 mg PO DAILY #7 tablet 02/15/16 Lisinopril/Hydrochlorothiazide [Lisinopril-Hctz 20-25 mg Tab] 1 each PO DAILY Clindamycin [Cleocin -] 300 mg PO Q6HPO #28 capsule 05/16/18
--- NOTE | 2018-05-16 18:10 | PN ---
Progress Note, Physician - Current Medication List Current Medications: Active Medications Clindamycin HCl (Cleocin -) 300 mg PO Q6HPO [facility] Last Admin: 05/16/18 17:52 Dose: 300 mg Hydrochlorothiazide (Hctz -) 25 mg PO DAILY [facility] Last Admin: 05/16/18 09:01 Dose: 25 mg Lisinopril (Prinivil) 20 mg PO DAILY [facility] Last Admin: 05/16/18 09:01 Dose: 20 mg Mupirocin (Bactroban 2% Ointment -) 1 applic NS BID [facility] Stop: 05/20/18 22:01 Last Admin: 05/16/18 09:27 Dose: 1 applic Paroxetine HCl (Paxil -) 30 mg PO DAILY [facility] Last Admin: 05/16/18 09:00 Dose: 30 mg - Objective Vital Signs: Vital Signs Temperature 98 F 05/16/18 14:52 Pulse Rate 66 05/16/18 14:52 Respiratory Rate 18 05/16/18 14:52 Blood Pressure 90/60 05/16/18 14:52 O2 Sat by Pulse Oximetry (%) 98 05/16/18 09:00 HENT: Yes: Other (swelling much improved) Cardiovascular: Yes: Regular Rate and Rhythm Respiratory: Yes: CTA Bilaterally Gastrointestinal: Yes: Normal Bowel Sounds Extremities: Yes: WNL Neurological: Yes: Alert, Oriented Labs: CBC, BMP 05/16/18 06:50 05/16/18 06:50 Problem List - Problems (1) Facial cellulitis Assessment/Plan: iv abx..stop mrsa on po clinda awaiting sensitivities Code(s): L03.211 - CELLULITIS OF FACE (2) Nasal abscess Assessment/Plan: need ent input Code(s): J34.0 - ABSCESS, FURUNCLE AND CARBUNCLE OF NOSE (3) Anxiety disorder Code(s): F41.9 - ANXIETY DISORDER, UNSPECIFIED Qualifiers: Anxiety disorder type: unspecified anxiety disorder Qualified Code(s): F41.9 - Anxiety disorder, unspecified (4) HTN (hypertension) Assessment/Plan: on meds stable Code(s): I10 - ESSENTIAL (PRIMARY) HYPERTENSION
== END 2018-05-16 19:00 | disposition home or self-care (01) | DRG 383 ==
LOC: JERFT 09:12 → JER 09:12 → JERBED 14:28 → J5S 20:23 → J8W 05-15 20:12
PROVIDERS: ADMIT Internal Medicine; ATTEND Internal Medicine
PROC: 099K0ZX Drainage of Nasal Mucosa and Soft Tissue, Open Approach, Diagnostic (ICD-10-PCS; principal; 2018-05-14)
DX: L03.211 Cellulitis of face (principal); J34.0 Abscess, furuncle and carbuncle of nose; F41.9 Anxiety disorder, unspecified; F32.9 Major depressive disorder, single episode, unspecified; I10 Essential (primary) hypertension; Z87.891 Personal history of nicotine dependence
CPT/HCPCS: 36415; 70491-TC; 80053; 85025; 87070; 87081; 87186; 87430; 99284-25

== ENCOUNTER 2019-01-16 08:57 | Emergency (ER) | payer OTHER ==
[2019-01-16 09:03] VITALS: BP 107/74; PULSE 79; TEMP 97.9; BMI 36.1
[2019-01-16] MEDS ORDERED: IBUPROFEN 400 MG TABLET (FP) PO ONE ×2 (09:43→09:47)
--- NOTE | 2019-01-16 09:50 | PDOC ---
History of Present Illness - General Chief Complaint: Pain, Acute Stated Complaint: RT SHOULDER PAIN Time Seen by Provider: 01/16/19 09:22 History Source: Patient Exam Limitations: No Limitations - History of Present Illness Initial Comments: 01/16/19 09:44 Patient states slipped and fell 10 days ago while [place], states landed primarily on her left side but has had an onset of right shoulder pain over the past few days. Return to the [place] on last week and onset of pain started on Monday. Has used Aleve/Advil with some mild resolved. 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 No fevers, no chest pain palpitations, no URI symptoms. States pain radiates down to right hand Occurred: reports: last week Severity: reports: mild, moderate Pain Location: reports: upper extremity (right shoulder) Method of Injury: Yes: fall Modifying Factors: improves with: None Associated Symptoms (Fall): denies symptoms Past History - Travel Traveled outside of the country in the last 30 days: No Close contact w/someone who was outside of country & ill: No - Past Medical History Allergies/Adverse Reactions: Allergies Allergy/AdvReac Type Severity Reaction Status Date / Time No Known Allergies Allergy Verified 01/16/19 09:03 Home Medications: Ambulatory Orders Paroxetine HCl [Paxil] 30 mg PO DAILY #7 tablet 02/15/16 Lisinopril/Hydrochlorothiazide [Lisinopril-Hctz 20-25 mg Tab] 1 each PO DAILY Cyclobenzaprine HCl 10 mg PO Q8H PRN #14 tablet 01/16/19 Diclofenac Sodium [Voltaren -] 25 mg PO QID 01/16/19 Naproxen [Naprosyn -] 500 mg PO BID #30 tablet 01/16/19 Omeprazole Magnesium 40 mg PO DAILY 01/16/19 COPD: No HTN: Yes Psychiatric Problems: Yes (depression) - Suicide/Smoking/Psychosocial Hx Smoking History: Former smoker Have you smoked in the past 12 months: No If you are a former smoker, when did you quit?: 2009 Information on smoking cessation initiated: No Hx Alcohol Use: No Drug/Substance Use Hx: No Substance Use Type: None Review of Systems - Review of Systems Able to Perform ROS?: Yes Is the patient limited Irish proficient: Yes Constitutional: Yes: Symptoms Reported, See HPI, Chills HEENTM: Yes: See HPI. No: Symptoms Reported Respiratory: Yes: See HPI. No: Symptoms reported, Cough, Shortness of Breath Musculoskeletal: Yes: Symptoms Reported, See HPI, Muscle Pain, Muscle Weakness ( to right arm) Integumentary: Yes: Symptoms Reported, See HPI *Physical Exam - Vital Signs Last Vital Signs Temp Pulse Resp BP Pulse Ox 97.9 F 79 17 107/74 100 01/16/19 09:00 01/16/19 09:00 01/16/19 09:00 01/16/19 09:00 01/16/19 09:00 - Physical Exam General Appearance: Yes: Nourished, Appropriately Dressed, Apparent Distress, Mild Distress HEENT: positive: TALAT, Normal ENT Inspection, TMs Normal, Pharynx Normal Neck: positive: Supple (has no CSPINE pain or swelling , no muscular pain however has tension and tightness to the sternocleidomastoid and upper trapezius musculature.). negative: Tender, Lymphadenopathy (R), Lymphadenopathy (L), Tender lateral, Tender midline Respiratory/Chest: positive: Lungs Clear Musculoskeletal: positive: Normal Inspection. negative: CVA Tenderness, Vertebral Tenderness Extremity: positive: Normal Capillary Refill, Normal Inspection, Normal Range of Motion (but pain reproduced on abduction past 90. And states radiates down to forearm and hand without movement. Has strong grasp, flexion and extension and neurovascular intact to hand.) Integumentary: positive: Normal Color, Dry, Warm Neurologic: positive: supervisor felling bucking II-XII NML intact, Fully Oriented, Alert, Normal Mood/ Affect, Normal Response, Motor Strength 5/5 Moderate Sedation - Procedure Monitoring Vital Signs: Procedure Monitoring Vital Signs Temperature 97.9 F 01/16/19 09:00 Pulse Rate 79 01/16/19 09:00 Respiratory Rate 17 01/16/19 09:00 Blood Pressure 107/74 01/16/19 09:00 O2 Sat by Pulse Oximetry (%) 100 01/16/19 09:00 ED Treatment Course - RADIOLOGY Radiology Studies Ordered: Category Date Time Status SPINE-CERVICAL [RAD] Stat Radiology 01/16/19 09:43 Ordered Progress Note - Progress Note Progress Note: Cervical spine x-ray shows arthritis/DJD and some mild straightening. Distant with possible impingement syndrome to right arm. We'll treat with NSAIDs and cyclobenzaprine and referred to or orthopedist *DC/Admit/Observation/Transfer Diagnosis at time of Disposition: Radiculopathy of arm - Discharge Dispostion Disposition: HOME Condition at time of disposition: Stable Decision to Admit order: No - Prescriptions Prescriptions: Cyclobenzaprine HCl 10 mg PO Q8H PRN #14 tablet PRN Reason: spasm Naproxen [Naprosyn -] 500 mg PO BID #30 tablet - Referrals Referrals: Jerri Miramontes [Primary Care Provider] - - Patient Instructions Printed Discharge Instructions: DI for Cervical Radiculopathy Additional Instructions: Rest, no heavy lifting or exercise until pain is resolved Hot soaks to neck and low back as often as possible/hot showers or Jacuzzis No massage or therapy until spasm is gone Continue Naprosyn 500 mg tablet, 1 tablet every 8 hours for the next 3 days then as needed for pain and swelling Cyclobenzaprine 1-10mg every 8 hours as needed for spasm If not significant improvement within 24 hours with medication and rest regime, followup with private physician for change in medications and /or therapy. - Post Discharge Activity Forms/Work/School Notes: Back to Work
== END 2019-01-16 10:31 | disposition home or self-care (01) ==
LOC: JERFT 08:57
DX: M54.10 Radiculopathy, site unspecified (principal); Z87.891 Personal history of nicotine dependence; I10 Essential (primary) hypertension; F32.9 Major depressive disorder, single episode, unspecified
CPT/HCPCS: 72050-TC-FY; 99281-25

== ENCOUNTER 2019-05-29 16:58 | Emergency (ER) | payer OTHER ==
[2019-05-29 17:09] VITALS: BP 132/82; PULSE 75; TEMP 98; BMI 47.0
--- NOTE | 2019-05-29 17:39 | PDOC ---
History of Present Illness - General Chief Complaint: Pain, Acute Stated Complaint: RT.BREAST/SHOULDER/ARM PIT PAIN Time Seen by Provider: 05/29/19 17:13 History Source: Patient Exam Limitations: No Limitations Past History - Past Medical History Allergies/Adverse Reactions: Allergies Allergy/AdvReac Type Severity Reaction Status Date / Time No Known Allergies Allergy Verified 01/16/19 09:03 Home Medications: Ambulatory Orders Paroxetine HCl [Paxil] 30 mg PO DAILY #7 tablet 02/15/16 Lisinopril/Hydrochlorothiazide [Lisinopril-Hctz 20-25 mg Tab] 1 each PO DAILY Cyclobenzaprine HCl 10 mg PO Q8H PRN #14 tablet 01/16/19 Diclofenac Sodium [Voltaren -] 25 mg PO QID 01/16/19 Naproxen [Naprosyn -] 500 mg PO BID #30 tablet 01/16/19 Omeprazole Magnesium 40 mg PO DAILY 01/16/19 COPD: No HTN: Yes Psychiatric Problems: Yes (depression) - Immunization History Immunization Up to Date: No - Suicide/Smoking/Psychosocial Hx Smoking History: Never smoked Have you smoked in the past 12 months: No If you are a former smoker, when did you quit?: 2009 Information on smoking cessation initiated: No Hx Alcohol Use: No Drug/Substance Use Hx: No Substance Use Type: None *Physical Exam - Vital Signs Last Vital Signs Temp Pulse Resp BP Pulse Ox 98.0 F 75 16 132/82 100 05/29/19 17:07 05/29/19 17:07 05/29/19 17:07 05/29/19 17:07 05/29/19 17:07 - Physical Exam General Appearance: No: Apparent Distress Neck: positive: Other (R breast no lumps or masses palpable, no skin color changes, no erythema, no nipple discharge, no inverted nipple, no axillary lymphadenopathy noted, no induration or fluctuance) Respiratory/Chest: positive: Lungs Clear, Normal Breath Sounds. negative: Respiratory Distress Cardiovascular: positive: Regular Rhythm, Regular Rate, S1, S2. negative: Murmur Neurologic: positive: Alert, Normal Mood/Affect Medical Decision Making - Medical Decision Making 59 y/o F hx of HTN presents with R breast pain radiating to R armpit x 1 week, taking Motrin without relief. Most of pain is around R nipple and along top of breast. Denies fever, rash, sob, cp, abd pain, n/v, nipple discharge, changes in skin color. Patient states she had mammogram done 3 months ago, which showed ?something along L breast, but nothing on R breast. Has not had a sonogram done No concerning signs on exam for abscess or mass Advised to f/u outpatient for breast sonogram 05/29/19 17:34 *DC/Admit/Observation/Transfer Diagnosis at time of Disposition: Breast pain, right - Discharge Dispostion Disposition: HOME Condition at time of disposition: Stable Decision to Admit order: No - Referrals - Patient Instructions Printed Discharge Instructions: DI for Breast Pain (Mastalgia) Additional Instructions: Thank you for choosing [facility]. It was a pleasure taking care of you. Please follow-up with your doctor and get outpatient sonogram of your right breast. Return to the Emergency Department if your symptoms worsen or persist, you have fever, shortness of breath, chest pain, redness of breast or other skin color changes, masses/lumps or other concerning symptoms. - Post Discharge Activity
--- NOTE | 2019-05-31 14:19 | EKG ---
Test Reason : Blood Pressure : / mmHG Vent. Rate : 073 BPM Atrial Rate : 073 BPM P-R Int : 124 ms QRS Dur : 082 ms QT Int : 374 ms P-R-T Axes : 013 017 011 degrees QTc Int : 412 ms NORMAL SINUS RHYTHM NORMAL ECG WHEN COMPARED WITH ECG OF 08-JUL-2015 11:00, NONSPECIFIC T WAVE ABNORMALITY NOW EVIDENT IN ANTERIOR LEADS Confirmed by CATARINO BELTRÁN MD ([id number]) on 05/31/2019 2:19:20 PM Referred By: Confirmed By:CATARINO BELTRÁN MD
== END 2019-05-29 17:47 | disposition home or self-care (01) ==
LOC: JERFT 16:58
DX: N64.4 Mastodynia (principal); I10 Essential (primary) hypertension; F32.9 Major depressive disorder, single episode, unspecified; Z87.891 Personal history of nicotine dependence
CPT/HCPCS: 93005; 93010; 99282-25

== ENCOUNTER → 2019-12-26 | Day surgery (SDC) | payer OTHER ==
--- NOTE | 2019-12-27 16:19 | PATH ---
Surgical Pathology Report Patient Name: NICHOLE MARS [facility]. Rec. #: [id number] /Age/Gender: 1960 (Age: 59) / F Account: [id number] Location: [facility] Taken: 12/26/2019 Received: 12/26/2019 Reported: 12/27/2019 Physicians: Chase Ladd M.D. Specimen(s) Received LEFT BREAST SPECIMEN WITH DENSITY Clinical History Nonpalpable lesion Final Diagnosis LEFT BREAST SPECIMEN WITH DENSITY, STEREOTACTIC BIOPSY: BENIGN BREAST TISSUE WITH FOCAL STROMAL FIBROSIS AND PERIDUCTAL MILD CHRONIC INFLAMMATION. Electronically Signed Ivanna Shi M.D. Gross Description Received in formalin labeled "left breast specimen with density," is a 4.1 x 2.4 x 0.3 cm aggregate of thayer yellow, irregular to cylindrical portions of fibroadipose tissue. The formalin is filtered and the specimen is entirely submitted in 2 cassettes. Time to formalin fixation: 4 minutes Total formalin fixation time: Approximately 7 hours. /12/26/2019 [facility]/12/26/2019
== END | disposition home or self-care (01) ==
LOC: FMAMMOTONE 08:37
PROVIDERS: ATTEND Family Medicine
PROC: 0HBU3ZX Excision of Left Breast, Percutaneous Approach, Diagnostic (ICD-10-PCS; principal; 2019-12-26)
DX: N60.32 Fibrosclerosis of left breast (principal); N64.89 Other specified disorders of breast; R92.8 Other abnormal and inconclusive findings on diagnostic imaging of breast
CPT/HCPCS: 19081; 88305-TC

== ENCOUNTER 2021-11-26 13:23 | Emergency (ER) | payer OTHER ==
[2021-11-26 13:29] VITALS: BP 133/85; PULSE 74; TEMP 97.6; BMI 42.5
[2021-11-26] MEDS ORDERED: MAG HYDROX/AL HYDROX/SIMETH 30 ML UNIT-DOSE CUP PO ONE (14:17)
[2021-11-26] MEDS ORDERED: FAMOTIDINE 20 MG TABLET PO ONE (14:17)
[2021-11-26] MEDS ORDERED: ONDANSETRON *ODT* 4 MG TABLET SL ONE (14:17)
[2021-11-26] MEDS ORDERED: FAMOTIDINE 20 MG TABLET ONE (14:21)
[2021-11-26] MEDS ORDERED: MAG HYDROX/AL HYDROX/SIMETH 30 ML UNIT-DOSE CUP ONE (14:22)
[2021-11-26] MEDS ORDERED: ONDANSETRON *ODT* 4 MG TABLET ONE (14:22)
== END 2021-11-26 15:50 | disposition home or self-care (01) ==
LOC: JER 13:23
DX: R10.13 Epigastric pain (principal)
CPT/HCPCS: 99283-25; Q0162

== ENCOUNTER 2024-03-23 | Emergency (ER) | payer OTHER ==
[2024-03-23 00:16] VITALS: BP 143/86; PULSE 97; RESP 20; TEMP 97.8; BMI 34.7
[2024-03-23] MEDS ORDERED: MAG HYDROX/AL HYDROX/SIMETH 30 ML UNIT-DOSE CUP ONE (00:59)
[2024-03-23] MEDS ORDERED: ONDANSETRON 4 MG/2 ML VIAL ONE (00:59)
[2024-03-23] MEDS ORDERED: FAMOTIDINE 20 MG/50 ML IVPB 20 MG/50 ML MG IVPB ONE (00:59)
[2024-03-23] MEDS: MAG HYDROX/AL HYDROX/SIMETH 30 ML UNIT-DOSE CUP PO ONE (01:17)
[2024-03-23] MEDS: SODIUM CHLORIDE 0.9% 500 ML INFUS.BAG IV ONE (01:18)
[2024-03-23] MEDS: FAMOTIDINE 20 MG/50 ML IVPB 20 MG/50 ML MG IVPB ONE (01:18)
[2024-03-23] MEDS: ONDANSETRON 4 MG/2 ML VIAL IVPUSH ONE (01:18)
[2024-03-23 01:48] LABS: BASO % 0.4 % (0-2.0); EOS % 1.8 % (0-4.5); HEMATOCRIT 36.9 % (32.4-45.2); HEMOGLOBIN 12.2 GM/dL (10.7-15.3); LYMPH % 18.7 % (8-40); MCH 27.9 pg (25.7-33.7); MEAN CELL VOLUME 84.8 fl (80-96); MEAN PLT VOLUME 8.5 fl (7.5-11.1); NEUT % 74.1 % (42.8-82.8); PLATELET COUNT 320 10^3/uL (134-434); RBC 4.35 M/mm3 (3.60-5.2); RDW 14.3 % (11.6-15.6); WHITE BLOOD COUNT 8.3 K/mm3 (4.0-10.0)
[2024-03-23 01:57] LABS: POTASSIUM 4.1 mmol/L (3.5-5.1)
[2024-03-23 02:01] LABS: CALCIUM 9.4 mg/dL (8.5-10.1)
[2024-03-23 02:02] LABS: ALBUMIN 3.6 g/dl (3.4-5.0); BLOOD UREA NITROGEN 36.9 mg/dL (7-18)
[2024-03-23 02:05] LABS: CREATININE 0.8 mg/dL (0.55-1.3)
[2024-03-23 02:07] LABS: BILIRUBIN,TOTAL 0.5 mg/dL (0.2-1); TOT PROT 7.2 g/dl (6.4-8.2)
[2024-03-23 02:18] LABS: INR 0.91 (0.83-1.09); PROTHROMBIN TIME (PATIENT) 10.3 SEC (9.7-13.0)
[2024-03-23 02:31] LABS: COCAINE, UR NEGATIVE (NEGATIVE); OPIATES, URI NEGATIVE (NEGATIVE); URINE BARBITURATES NEGATIVE (NEGATIVE)
[2024-03-23 02:32] LABS: METHADONE, UR NEGATIVE (NEGATIVE); PHENCYCLIDINE,URINE NEGATIVE (NEGATIVE); URINE BENZODIAZEPINES NEGATIVE (NEGATIVE)
[2024-03-23 02:34] LABS: URINE AMPHETAMINES NEGATIVE (NEGATIVE)
== END 2024-03-23 03:57 | disposition home or self-care (01) ==
LOC: JER
PROC: 3E033GC Introduction of Other Therapeutic Substance into Peripheral Vein, Percutaneous Approach (ICD-10-PCS; principal; 2024-03-23)
PROC: 3E033GC Introduction of Other Therapeutic Substance into Peripheral Vein, Percutaneous Approach (ICD-10-PCS; 2024-03-23)
DX: F12.920 Cannabis use, unspecified with intoxication, uncomplicated (principal); R10.13 Epigastric pain; R42 Dizziness and giddiness; R07.9 Chest pain, unspecified
CPT/HCPCS: 36415; 70450-TC; 80053; 80307; 84436; 84443; 84484; 85025; 85610; 93005; 93010; 99285-25